=== PATIENT | female | born 1980 | race Caucasian/White ===

== ENCOUNTER 2018-11-01 20:50 | Emergency (ER) | payer MEDICAID ==
[~2018-11-01] VITALS: Ht 162.6 cm; Wt 69.4 kg
[2018-11-01 21:07] VITALS: BP 130/77
== END 2018-11-01 22:00 | disposition home or self-care (01) ==
LOC: ER 20:57
DX: H10.89 Other conjunctivitis (principal); J03.90 Acute tonsillitis, unspecified